=== PATIENT | female | born 1980 | race Caucasian/White ===

== ENCOUNTER 2022-09-24 21:55 | Emergency (ER) | payer BC, SELFPAY ==
[2022-09-24 22:02] VITALS: BP 133/80; PULSE 92; RESP 16; TEMP 36.8; O2SAT 100; BMI 31.2
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
[2022-09-24] MEDS: tetanus-dipt-pertussis 0.5 mL SDV IM (22:43)
[2022-09-24] MEDS: lidocaine 1% INJ 10 mL (per mL) 5 ML INJECTION (22:49)
== END 2022-09-24 22:55 | disposition home or self-care (01) ==
PROVIDERS: Emergency Provider Nurse Practitioner
DX: M79.5 Residual foreign body in soft tissue (principal); Z23 Encounter for immunization
CPT/HCPCS: 90471; 90715; 99283